=== PATIENT | male | born 1955 | race Caucasian/White ===

== ENCOUNTER 2024-06-09 19:12 | Inpatient (IN) | payer OTHER ==
[~2024-06-09] VITALS: Ht 175.3 cm; Wt 120.4 kg
[2024-06-09 19:37] LABS: BASOPHILS ABSOLUTE AUTO 0.03 K/mm3 (0.00-0.23); BASOPHILS PERCENT AUTO 1 % (0-2); EOSINOPHILS ABSOLUTE AUTO 0.11 K/mm3 (0.00-0.68); EOSINOPHILS PERCENT AUTO 2 % (0-6); Hematocrit 43.8 % (37.0-53.0); Hemoglobin 15.2 g/dL (13.5-17.5); IMMATURE GRAN ABSOLUTE AUTO 0.05 K/mm3 (0.00-0.10); IMMATURE GRAN PERCENT AUTO 1 % (0-1); LYMPHOCYTES PERCENT AUTO 22 % (21-46); MONOCYTES ABSOLUTE AUTO 0.78 K/mm3 (0.16-1.47); MONOCYTES PERCENT AUTO 12 % (4-13); Mean Corpuscular HGB 31.9 pg (26.0-34.0); Mean Corpuscular HGB Conc 34.7 g/dL (31.5-36.5); Mean Corpuscular Volume 92 fL (80-100); Mean Platelet Volume 10.6 fL (9.1-12.4); NEUTROPHILS ABSOLUTE AUTO 3.91 K/mm3 (1.96-9.15); NEUTROPHILS PERCENT AUTO 62 % (41-73); Platelet Count 180 K/mm3 (150-400); RDW Coefficient Variation 15.3 % (11.7-14.2); RDW Standard Deviation 50.1 fL (35.1-46.3); Red Blood Cell Count 4.77 M/mm3 (4.30-5.90); White Blood Cell Count 6.28 K/mm3 (4.00-11.30)
[2024-06-09 19:42] LABS: Base Excess Venous -3.2 mmol/L; Bicarbonate Venous 22.7 mmol/L (24.0-30.0); PCO2 Venous 31.1 mmHg (38-42); pH Blood Venous 7.44 (7.34-7.37)
[2024-06-09 19:55] LABS: Albumin, Blood 2.6 g/dL (3.4-5.0); Albumin/Globulin Ratio 0.7 (0.8-1.8); Bilirubin, Total 0.9 mg/dL (0.1-1.0); Bun/Creatinine Ratio 5.3 (12.0-20.0); Calcium, Blood 7.6 mg/dL (8.5-10.1); Creatinine, Blood 1.13 mg/dL (0.60-1.20); Globulin, Blood 3.9 g/dL (2.2-4.0); Total Protein, Blood 6.5 g/dL (6.4-8.2)
[2024-06-09 21:10] LABS: Influenza A, PCR NEGATIVE (NEGATIVE); Influenza B, PCR NEGATIVE (NEGATIVE); Resp Syncytial Virus, PCR NEGATIVE (NEGATIVE); SARS-Cov-2 (COVID-19) PCR, MMC NEGATIVE (NEGATIVE)
[2024-06-09 21:36] LABS: D-Dimer, Quantitative 3.92 mg/L FEU (0.00-0.52)
[2024-06-09] MEDS ORDERED: FLU VACC TS2024-25(6MOS UP)/PF 45 MCG/0.5 ML SYRINGE IM ONE (22:40)
[2024-06-09] MEDS ORDERED: Heparin Sodium 5000 Units/ML 1ML MDV IV ONE (23:45)
[2024-06-09] MEDS ORDERED: Heparin Sodium,Porcine/0.5 NS 500 ML IV SCH (23:45)
[2024-06-09 23:50] LABS: Anti-Xa UFH, PHA Monitoring <0.10 IU/mL; International Normalized Ratio 1.11; Prothrombin Time Results 11.8 Sec (9.7-11.5)
[2024-06-10 00:15] VITALS: BP 149/68
[2024-06-10] MEDS ORDERED: Ipratropium/Albuterol SulF 2.5-0.5MG/3 ML Amp INH PRN (00:30)
[2024-06-10] MEDS ORDERED: Lactated Ringer's 1,000 ML IV SCH (01:00)
[2024-06-10 03:44] VITALS: BP 137/79
[2024-06-10 05:13] LABS: BASOPHILS ABSOLUTE AUTO 0.03 K/mm3 (0.00-0.23); BASOPHILS PERCENT AUTO 1 % (0-2); EOSINOPHILS ABSOLUTE AUTO 0.18 K/mm3 (0.00-0.68); EOSINOPHILS PERCENT AUTO 3 % (0-6); Hematocrit 41.7 % (37.0-53.0); Hemoglobin 14.6 g/dL (13.5-17.5); IMMATURE GRAN ABSOLUTE AUTO 0.04 K/mm3 (0.00-0.10); IMMATURE GRAN PERCENT AUTO 1 % (0-1); LYMPHOCYTES ABSOLUTE AUTO 1.51 K/mm3 (0.84-5.20); LYMPHOCYTES PERCENT AUTO 24 % (21-46); MONOCYTES ABSOLUTE AUTO 0.59 K/mm3 (0.16-1.47); MONOCYTES PERCENT AUTO 9 % (4-13); Mean Corpuscular HGB 31.9 pg (26.0-34.0); Mean Corpuscular Volume 91 fL (80-100); Mean Platelet Volume 11.2 fL (9.1-12.4); NEUTROPHILS PERCENT AUTO 62 % (41-73); Platelet Count 169 K/mm3 (150-400); RDW Coefficient Variation 15.3 % (11.7-14.2); RDW Standard Deviation 50.2 fL (35.1-46.3); Red Blood Cell Count 4.57 M/mm3 (4.30-5.90); White Blood Cell Count 6.25 K/mm3 (4.00-11.30)
[2024-06-10 05:41] LABS: Alanine Aminotransfer (ALT/SGP 26 U/L (12-78); Albumin, Blood 2.6 g/dL (3.4-5.0); Albumin/Globulin Ratio 0.7 (0.8-1.8); Alk Phos 43 U/L (50-136); Anion Gap 11 mmol/L (3-11); Aspartate Aminotrans (AST/SGOT 26 U/L (12-37); Bilirubin, Total 1.4 mg/dL (0.1-1.0); Blood Urea Nitrogen 5 mg/dL (8-24); Bun/Creatinine Ratio 4.7 (12.0-20.0); CO2, Blood 23 mmol/L (21-32); Chloride, Blood 107 mmol/L (98-108); Cholesterol 133 mg/dL (50-200); Creatinine, Blood 1.07 mg/dL (0.60-1.20); Globulin, Blood 3.6 g/dL (2.2-4.0); Glomerular Filtration Rate 76 (60-); Glucose, Blood 110 mg/dL (70-99); HDL Cholesterol 22 mg/dL (>39); LDL/HDL RATIO 3.7; Low Density Lipoprotein Chol 81 mg/dL (0-110); Magnesium, Blood 1.8 mg/dL (1.6-2.4); Potassium, Blood 4.3 mmol/L (3.5-5.5); Sodium, Blood 137 mmol/L (136-145); Thyroid Stimulating Hormone 0.823 uIU/mL (0.360-4.800); Total Protein, Blood 6.2 g/dL (6.4-8.2); Triglycerides 150 mg/dL (30-160); Very Low Density Lipoprot Chol 30 mg/dL (6-32)
--- NOTE | 2024-06-10 06:39 | NUR ---
SHIFT SUMMARY PT ADMITTED 0011 WITH DYSPNEA RELATED TO EXERTION. PT HAS FRIEND IN ROOM. PLEASANT AND COOPERATIVE WITH CARE. PT EXPRESSED FEAR OF NEEDLES, AND WOULD LIKE TO REFRAIN FROM RECEIVING 2ND IV SITE 0500. THIS RN ABLE TO PUT IN SECOND IV 20G IN LEFT WRIST FOR FLUID AND MEDICATION ADMINISTRATION. PT HAD RUN OF PVC S AND SINUS TACH DURING INSERTION, DUE TO STRESS OF PUTTING IV IN.
[2024-06-10 07:33] VITALS: BP 144/133
[2024-06-10 07:40] VITALS: BP 135/86
[2024-06-10] MEDS ORDERED: Dose Adjust by Pharmacy XX STA ×2 (07:44→14:55)
[2024-06-10] MEDS ORDERED: Heparin Sodium 5000 Units/ML 1ML MDV IV ONE ×2 (07:45→21:20)
[2024-06-10] MEDS ORDERED: Enoxaparin 40 MG/0.4 ML SYR SC SCH (09:00)
--- NOTE | 2024-06-10 10:35 | NUR ---
CALL TO DR IRVING, ON-CALL IR: PT NOT REQUIRING OXYGEN AND NO ACTIVE SOB WITHOUT EXERTION. WILL PLAN TO SEE WEDNESDAY UNLESS IMMEDIATE NEED ARISES.
[2024-06-10 15:39] VITALS: BP 146/81
--- NOTE | 2024-06-10 17:13 | NUR ---
PT HAS BEE AOX4 AND COOPERATIVE OF CARE. PT HAD MRI COMPLETED AND WOUND CARE WAS PREFORMED ON BOTH STUMPS PER ORDER. PT TOLERATED WELL AND HELPED WITH SOME OF THE CARE. PT HAS CALL LIGHT WITHIN REACH. NO DISTRESS IS NOTED WILL CONTINUE TO MONITOR.
--- NOTE | 2024-06-10 17:16 | NUR ---
PT HAS BEEN AOX4 AND COOPERATIVE OF CARE THROUGHOUT THE DAY. PT STILL FEELS SOB WITH AMBULATION. PT WAS ABLE TO BE INDEPENDENT TO RESTROOM. AT TIMES HE WILL REQUEST HELP WITH IV LINES. PT WAS DESATING A BIT SLEEPING AND RT ADDED 2L WHILE PT SLEEPS. CALL LIGHT IS WITHIN REACH WILL CONTINUE TO MONITOR.
[2024-06-10 19:29] VITALS: BP 127/85
[2024-06-11 02:41] VITALS: BP 147/82
[2024-06-11 04:10] LABS: Hematocrit 43.9 % (37.0-53.0); Hemoglobin 15.2 g/dL (13.5-17.5); Mean Platelet Volume 11.3 fL (9.1-12.4); Platelet Count 184 K/mm3 (150-400)
[2024-06-11] MEDS ORDERED: Dose Adjust by Pharmacy XX STA (04:33)
--- NOTE | 2024-06-11 06:02 | NUR ---
SHIFT SUMMARY: Pt is admitted for dyspnea on exertion and is a full code. Is alert and able to make needs known. ADLs have been SBA mainly for cable management. Denies pain or discomfort when asked. Telly reports sinus in the 80s. On a heparin drip started shift at 36.4 ml/h. Was increased to 40 ml/h and a 2,300u bouls about 2130. On check at about 0300 no changes to heparin drip.
[2024-06-11 07:36] VITALS: BP 139/83
[2024-06-11] MEDS ORDERED: Furosemide 20 MG Tab PO PRN (07:55)
[2024-06-11 08:38] LABS: BASOPHILS ABSOLUTE AUTO 0.03 K/mm3 (0.00-0.23); BASOPHILS PERCENT AUTO 1 % (0-2); EOSINOPHILS ABSOLUTE AUTO 0.17 K/mm3 (0.00-0.68); EOSINOPHILS PERCENT AUTO 3 % (0-6); Hematocrit 42.9 % (37.0-53.0); Hemoglobin 14.7 g/dL (13.5-17.5); IMMATURE GRAN ABSOLUTE AUTO 0.02 K/mm3 (0.00-0.10); IMMATURE GRAN PERCENT AUTO 0 % (0-1); LYMPHOCYTES ABSOLUTE AUTO 1.28 K/mm3 (0.84-5.20); LYMPHOCYTES PERCENT AUTO 25 % (21-46); MONOCYTES ABSOLUTE AUTO 0.52 K/mm3 (0.16-1.47); MONOCYTES PERCENT AUTO 10 % (4-13); Mean Corpuscular HGB Conc 34.3 g/dL (31.5-36.5); Mean Corpuscular Volume 93 fL (80-100); Mean Platelet Volume 10.9 fL (9.1-12.4); NEUTROPHILS ABSOLUTE AUTO 3.09 K/mm3 (1.96-9.15); NEUTROPHILS PERCENT AUTO 61 % (41-73); Platelet Count 192 K/mm3 (150-400); RDW Coefficient Variation 15.4 % (11.7-14.2); RDW Standard Deviation 51.8 fL (35.1-46.3); White Blood Cell Count 5.11 K/mm3 (4.00-11.30)
[2024-06-11 08:56] LABS: Bun/Creatinine Ratio 7.1 (12.0-20.0); Calcium, Blood 8.5 mg/dL (8.5-10.1); Creatinine, Blood 1.12 mg/dL (0.60-1.20); Potassium, Blood 4.1 mmol/L (3.5-5.5)
[2024-06-11] MEDS ORDERED: Metoprolol Succinate 25 MG TABCR PO SCH (09:00)
[2024-06-11] MEDS ORDERED: Losartan Potassium 25 MG Tab PO SCH (09:00)
[2024-06-11] MEDS ORDERED: Rivaroxaban 10 MG Tab PO SCH (09:40)
--- NOTE | 2024-06-11 09:57 | NUR ---
NOTE: PATIENT STARTED ON PO XARELTO-ADMINISTERED AT 0943 AND HEPARIN GTT STOPPED PER ORDER.
[2024-06-11] MEDS ORDERED: Empagliflozin 10 MG TAB PO SCH (13:00)
[2024-06-11 15:35] VITALS: BP 132/88
--- NOTE | 2024-06-11 16:35 | NUR ---
SHIFT SUMMARY: PATIENT A/OX4, PLEASANT AND COOPERATIVE c CARE. PATIENT DENIES CP/PRESSURE, N/V AND DIZZINESS. PATIENT HAS HAD NO EVENTS ON TELE, SR HR IN THE MID 90'S BP c OCCASIONAL BBB. PATIENT REPORTS SLIGHT SOB c AMBULATION TO BATHROOM, BUT WHEN RESTING IN BED NO SOB. PATIENT HAS CONTINUES PULSE OX AT BEDSIDE, RA WHEN AWAKE SATTING 91-96%. THIS RN NOTICED DURING ROUNDING PATIENT WAS IN THE DEEP SLEEP/SNOORING HIS O2 DROOPED TO 82%. NOTIFIED DR. CARA cornejo THIS CONCERNED, RECEIVED ORDER TO PLACED A NOCTURNAL OXYMETRY STUDY. PATIENT RECEIVED SCHEDULED MEDS PER EMAR. VITAL SIGNS REVIEWED. CALL LIGHT IN REACH.
--- NOTE | 2024-06-11 16:35 | NUR ---
ADDITIONAL SHIFT NOTE: PATIENT WAS PLACED ON 2L O2 WHEN SLEEPING; OTHERWISE, RA WHEN AWAKE.
[2024-06-11 20:06] VITALS: BP 129/87
[2024-06-12 04:04] VITALS: BP 145/94
--- NOTE | 2024-06-12 06:01 | NUR ---
SHIFT SUMMARY: Pt is admitted for dyspnea on exertion and is a full code. Is alert and able to make needs known. ADLs have been SBA mainly for cable management. Denies pain or discomfort when asked. Telly reports sinus in the 70s with a bundle branch. Had sleep study done this shift.
[2024-06-12 07:16] VITALS: BP 130/73
[2024-06-12 07:56] LABS: BASOPHILS ABSOLUTE AUTO 0.01 K/mm3 (0.00-0.23); BASOPHILS PERCENT AUTO 0 % (0-2); EOSINOPHILS ABSOLUTE AUTO 0.12 K/mm3 (0.00-0.68); EOSINOPHILS PERCENT AUTO 3 % (0-6); Hematocrit 43.9 % (37.0-53.0); Hemoglobin 15.2 g/dL (13.5-17.5); IMMATURE GRAN ABSOLUTE AUTO 0.02 K/mm3 (0.00-0.10); IMMATURE GRAN PERCENT AUTO 0 % (0-1); LYMPHOCYTES ABSOLUTE AUTO 0.91 K/mm3 (0.84-5.20); LYMPHOCYTES PERCENT AUTO 19 % (21-46); MONOCYTES ABSOLUTE AUTO 0.57 K/mm3 (0.16-1.47); MONOCYTES PERCENT AUTO 12 % (4-13); Mean Corpuscular HGB Conc 34.6 g/dL (31.5-36.5); Mean Corpuscular Volume 92 fL (80-100); Mean Platelet Volume 10.9 fL (9.1-12.4); NEUTROPHILS PERCENT AUTO 66 % (41-73); Platelet Count 205 K/mm3 (150-400); RDW Coefficient Variation 15.2 % (11.7-14.2); RDW Standard Deviation 50.5 fL (35.1-46.3); Red Blood Cell Count 4.75 M/mm3 (4.30-5.90); White Blood Cell Count 4.83 K/mm3 (4.00-11.30)
[2024-06-12 08:18] LABS: Albumin, Blood 2.6 g/dL (3.4-5.0); Albumin/Globulin Ratio 0.7 (0.8-1.8); Bilirubin, Total 0.9 mg/dL (0.1-1.0); Bun/Creatinine Ratio 7.1 (12.0-20.0); Calcium, Blood 8.7 mg/dL (8.5-10.1); Creatinine, Blood 1.26 mg/dL (0.60-1.20); Globulin, Blood 3.8 g/dL (2.2-4.0); Potassium, Blood 4.2 mmol/L (3.5-5.5); Total Protein, Blood 6.4 g/dL (6.4-8.2)
[2024-06-12] MEDS ORDERED: Metoprolol Succinate 25 MG TABCR PO SCH (09:00)
[2024-06-12] MEDS ORDERED: Albuterol HFA200 ACT/6.7 GM INH INH PRN (10:10)
[2024-06-12] MEDS ORDERED: JARDIANCE10 MG PO (11:54)
[2024-06-12] MEDS ORDERED: LOSA25 PO (11:55)
[2024-06-12] MEDS ORDERED: METO25ER PO (11:55)
[2024-06-12] MEDS ORDERED: FURO20 PO (11:55)
[2024-06-12] MEDS ORDERED: XARELTO20 MG PO (11:56)
[2024-06-12] MEDS ORDERED: XARELTO15 MG PO (11:56)
[2024-06-12] MEDS ORDERED: COMBIVENT RESPIM4 G1 INH (11:57)
--- NOTE | 2024-06-12 15:20 | NUR ---
PT DISCHARGED TO HOME. DISCHARGE EDUCATION PROVIDED AND EDUCATED ON PRIOR TO DISCHARGE. HARD SCRIPTS MEDICATION PROVIDED AND S[facility] WITH THE PT [facility]. ALL VALUABLES SENT WITH THE PT.
== END 2024-06-12 15:51 | disposition home or self-care (01) | DRG 299 ==
LOC: ER 19:12 → MEDS 19:13
PROVIDERS: Emergency Medicine; Internal Medicine; Student in an Organized Health Care Education/Training Program; ADMIT Student in an Organized Health Care Education/Training Program
DX: I82.412 Acute embolism and thrombosis of left femoral vein (principal); I26.94 Multiple subsegmental thrombotic pulmonary emboli without acute cor pulmonale; I50.40 Unspecified combined systolic (congestive) and diastolic (congestive) heart failure; I82.432 Acute embolism and thrombosis of left popliteal vein; I82.452 Acute embolism and thrombosis of left peroneal vein; M06.9 Rheumatoid arthritis, unspecified; I44.7 Left bundle-branch block, unspecified; Z99.81 Dependence on supplemental oxygen; Z87.891 Personal history of nicotine dependence
CPT/HCPCS: 0241U; 36415; 71046; 71260; 80048; 80053; 80061; 82330; 82803; 82947; 83036; 83735; 83880; 84443; 84484; 85014; 85018; 85025; 85049; 85379; 85520; 85610; 93005; 93010; 93306; 93970; 94760; 94761; 94762; 99285-25; A9270; G0378; J1644; J7120; Q9967

== ENCOUNTER 2024-06-26 01:36 | Observation (INO) | payer OTHER ==
[~2024-06-26] VITALS: Ht 175.3 cm; Wt 115.5 kg
[~2024-06-26 01:36] MED LIST: COMBIVENT RESPIM4 G1 INH; FURO20 PO; JARDIANCE10 MG PO; LOSA25 PO; METO25ER PO; XARELTO15 MG PO; XARELTO20 MG PO
[2024-06-26 02:09] LABS: BASOPHILS ABSOLUTE AUTO 0.08 K/mm3 (0.00-0.23); BASOPHILS PERCENT AUTO 1 % (0-2); EOSINOPHILS ABSOLUTE AUTO 0.12 K/mm3 (0.00-0.68); EOSINOPHILS PERCENT AUTO 2 % (0-6); Hematocrit 43.7 % (37.0-53.0); Hemoglobin 14.9 g/dL (13.5-17.5); IMMATURE GRAN ABSOLUTE AUTO 0.03 K/mm3 (0.00-0.10); IMMATURE GRAN PERCENT AUTO 1 % (0-1); LYMPHOCYTES ABSOLUTE AUTO 1.94 K/mm3 (0.84-5.20); LYMPHOCYTES PERCENT AUTO 32 % (21-46); MONOCYTES ABSOLUTE AUTO 0.67 K/mm3 (0.16-1.47); MONOCYTES PERCENT AUTO 11 % (4-13); Mean Corpuscular HGB 32.3 pg (26.0-34.0); Mean Corpuscular HGB Conc 34.1 g/dL (31.5-36.5); Mean Corpuscular Volume 95 fL (80-100); Mean Platelet Volume 11.1 fL (9.1-12.4); NEUTROPHILS ABSOLUTE AUTO 3.27 K/mm3 (1.96-9.15); NEUTROPHILS PERCENT AUTO 53 % (41-73); Platelet Count 249 K/mm3 (150-400); RDW Coefficient Variation 14.9 % (11.7-14.2); RDW Standard Deviation 51.8 fL (35.1-46.3); Red Blood Cell Count 4.61 M/mm3 (4.30-5.90); White Blood Cell Count 6.11 K/mm3 (4.00-11.30)
[2024-06-26 02:30] LABS: Albumin, Blood 2.9 g/dL (3.4-5.0); Albumin/Globulin Ratio 0.7 (0.8-1.8); Bilirubin, Total 0.3 mg/dL (0.1-1.0); Calcium, Blood 8.3 mg/dL (8.5-10.1); Creatinine, Blood 1.13 mg/dL (0.60-1.20); Globulin, Blood 3.9 g/dL (2.2-4.0); Potassium, Blood 4.2 mmol/L (3.5-5.5); Total Protein, Blood 6.8 g/dL (6.4-8.2)
[2024-06-26 03:40] LABS: Influenza A, PCR NEGATIVE (NEGATIVE); Influenza B, PCR NEGATIVE (NEGATIVE); Resp Syncytial Virus, PCR NEGATIVE (NEGATIVE); SARS-Cov-2 (COVID-19) PCR, MMC NEGATIVE (NEGATIVE)
[2024-06-26] MEDS ORDERED: FLU VACC TS2024-25(6MOS UP)/PF 45 MCG/0.5 ML SYRINGE IM ONE (06:05)
[2024-06-26] MEDS ORDERED: Ondansetron HCl 2 MG / ML 2ML Vial IV PRN (06:05)
[2024-06-26] MEDS ORDERED: Ipratropium/Albuterol SulF 2.5-0.5MG/3 ML Amp INH PRN (06:10)
[2024-06-26] MEDS ORDERED: Furosemide 10 MG/ML 4ML Vial IV SCH (07:00)
[2024-06-26] MEDS ORDERED: MethylPREDNISolone Sod Succ 125 MG Vial IV SCH (07:00)
[2024-06-26] MEDS ORDERED: Rivaroxaban 10 MG Tab PO SCH (09:00)
[2024-06-26] MEDS ORDERED: Metoprolol Succinate 25 MG TABCR PO SCH (09:00)
[2024-06-26] MEDS ORDERED: Losartan Potassium 50 MG Tab PO SCH (09:00)
[2024-06-26] MEDS ORDERED: Empagliflozin 10 MG TAB PO SCH (10:00)
[2024-06-26] MEDS ORDERED: Prednisone10 MG PO (15:35)
[2024-06-26 15:36] VITALS: BP 139/99
[2024-06-26 19:17] VITALS: BP 125/78
--- NOTE | 2024-06-26 19:28 | NUR ---
SHIFT SUMMARY 1630 RECEIVED PT TO RM 302 VIA GURNEY FROM ER. PT ABLE TO TX SELF TO BED. A&O, PLEASANT AND CO-OP WITH CARE. INDEPENDENT IN AND TO [facility]. ADMITTED FOR ACUTE CHF. PT TO ER WITH C/O SOB THAT HAD INCREASED FOR PAST FEW DAYS. HX OF PE'S AND DVT; NOW ON XARELTO. PER REPORT FROM EVELIN PAYNE, EMBOLI STABLE. BP AND VSS; SEE CHART. DR WELLS HERE TO SEE PT SOON AFTER ADMISSION. TROPONINS BEING CHK'D; SEE CHART. SR ON TELE, PER MX. PT PLACED ON CARDIAC DIET. UP TO SHOWER AFTER ADMISSION AND NOW SLEEPING IN RECLINER AT BS, PER REQUEST. DENIES FURTHER NEEDS AT THIS TIME. REPORT GIVEN TO ALIYA PAYNE.
--- NOTE | 2024-06-27 04:00 | NUR ---
EMPLOYMENT ATTORNEY SUMMARY NO ACUTE EVENTS OVERNIGHT. NO CHANGES. PT STILL FEELS A LITTLE SOB ON TRIPS TO THE BATHROOM. STICT I AND O DONE. PT DOING WELL ON ROOM AIR.
[2024-06-27 04:11] VITALS: BP 118/73
[2024-06-27 05:16] LABS: BASOPHILS ABSOLUTE AUTO 0.03 K/mm3 (0.00-0.23); BASOPHILS PERCENT AUTO 0 % (0-2); EOSINOPHILS ABSOLUTE AUTO 0.02 K/mm3 (0.00-0.68); EOSINOPHILS PERCENT AUTO 0 % (0-6); Hemoglobin 14.8 g/dL (13.5-17.5); IMMATURE GRAN ABSOLUTE AUTO 0.05 K/mm3 (0.00-0.10); IMMATURE GRAN PERCENT AUTO 1 % (0-1); LYMPHOCYTES ABSOLUTE AUTO 1.72 K/mm3 (0.84-5.20); LYMPHOCYTES PERCENT AUTO 19 % (21-46); MONOCYTES ABSOLUTE AUTO 0.95 K/mm3 (0.16-1.47); MONOCYTES PERCENT AUTO 10 % (4-13); Mean Corpuscular HGB 31.7 pg (26.0-34.0); Mean Corpuscular HGB Conc 33.6 g/dL (31.5-36.5); Mean Corpuscular Volume 94 fL (80-100); Mean Platelet Volume 12.1 fL (9.1-12.4); NEUTROPHILS ABSOLUTE AUTO 6.52 K/mm3 (1.96-9.15); NEUTROPHILS PERCENT AUTO 70 % (41-73); Platelet Count 251 K/mm3 (150-400); RDW Coefficient Variation 14.9 % (11.7-14.2); RDW Standard Deviation 51.6 fL (35.1-46.3); Red Blood Cell Count 4.67 M/mm3 (4.30-5.90); White Blood Cell Count 9.29 K/mm3 (4.00-11.30)
[2024-06-27 05:59] LABS: Albumin, Blood 2.7 g/dL (3.4-5.0); Albumin/Globulin Ratio 0.7 (0.8-1.8); Bilirubin, Total 0.6 mg/dL (0.1-1.0); Bun/Creatinine Ratio 21.9 (12.0-20.0); Calcium, Blood 8.7 mg/dL (8.5-10.1); Creatinine, Blood 1.14 mg/dL (0.60-1.20); Globulin, Blood 3.8 g/dL (2.2-4.0); Potassium, Blood 4.2 mmol/L (3.5-5.5); Total Protein, Blood 6.5 g/dL (6.4-8.2)
[2024-06-27 07:27] VITALS: BP 126/77
[2024-06-27] MEDS ORDERED: PredniSONE 20 MG Tab PO SCH (09:00)
--- NOTE | 2024-06-27 13:04 | NUR ---
DISCHARGE NOTE: PATIENT GIVEN DISCHARGE INSTRUCTIONS TO PATIENT AND SIGNIFICANT OTHER PER PATIENT REQUEST. PATIENT'S MEDICAITON WERE REVIEWED AND ADVISED OF IMPORTANCE OF DISHCARGE FOLLOW UP WITH PRIMARY CARE PROVIDER AT [facility]. PATIENT STATED HE WAS PLANNING TO GO THERE DIRECTLY AFTER DISHCARGE TO BOOK APPT AND GET MEDICATION ORDERED. PATIENT VERBALIZED UNDERSTANDING AND DENIED ANY OTHER QUESTIONS. PATIENT TAKEN DOWN VIA WHEELCHAIR WITH SIGNFICANT OTHER TO TAKE PATIENT HOME.
[2024-07-03] MEDS ORDERED: Rivaroxaban 10 MG Tab PO SCH (09:00)
== END 2024-06-27 12:50 | disposition home or self-care (01) ==
LOC: ER 01:36 → ERHOLD 01:37 → MEDS 15:23 → ENPENDDIS 06-27 11:14 → MEDS 06-27 12:50
PROVIDERS: Student in an Organized Health Care Education/Training Program; ADMIT Internal Medicine
DX: I11.0 Hypertensive heart disease with heart failure (principal); I50.33 Acute on chronic diastolic (congestive) heart failure; R06.2 Wheezing; R79.89 Other specified abnormal findings of blood chemistry; M06.9 Rheumatoid arthritis, unspecified; Z79.01 Long term (current) use of anticoagulants; Z86.711 Personal history of pulmonary embolism; Z79.899 Other long term (current) drug therapy; Z86.718 Personal history of other venous thrombosis and embolism
CPT/HCPCS: 0241U; 36415; 71046; 71260; 80053; 83880; 84484; 85025; 85379; 93005; 93010; 96374-59; 96375-59; 96376; 99285-25; A9270; G0378; J1940; J2919; J7512; Q9967

== ENCOUNTER 2024-07-17 06:28 | Day surgery (SDC) | payer OTHER ==
[~2024-07-17] VITALS: Ht 175.3 cm; Wt 118.0 kg
[2024-07-17] VITALS (8 sets, daily range): BP systolic 120–151; BP diastolic 77–101
[~2024-07-17 06:28] MED LIST changes: +Prednisone10 MG PO
[2024-07-17] MEDS ORDERED: NS 1,000 ML IV ONE ×2 (06:38→07:26)
[2024-07-17] MEDS ORDERED: Heparin Sodium 1000 Units/ML 10ML MDV ONE ×2 (06:38→07:26)
[2024-07-17] MEDS ORDERED: FentaNYL Citrate 50 MCG/ML 2 ML Injection ONE ×2 (07:17→09:02)
[2024-07-17] MEDS ORDERED: Dexamethasone Sod Phos 10 MG/ML 1ML VIAL ONE (07:17)
[2024-07-17] MEDS ORDERED: propofoL 20 ML IV ONE (07:17)
[2024-07-17] MEDS ORDERED: Ondansetron HCl 2 MG / ML 2ML Vial ONE (07:17)
[2024-07-17] MEDS ORDERED: Albuterol 2.5 MG/3 ML VIAL ONE (07:26)
[2024-07-17] MEDS ORDERED: SuccINYLCHOLINE Chloride 100 MG/5 ML 5MLSYR ONE (07:42)
--- NOTE | 2024-07-17 09:28 | NUR ---
PT BACK TO RECOVERY ROOM, WAKING UP FROM ANESTHESIA.
--- NOTE | 2024-07-17 09:46 | NUR ---
pt a&o. l leg site soft and mildly tender per pt. no bleeding noted.
--- NOTE | 2024-07-17 09:47 | NUR ---
anesthesia record in chart
--- NOTE | 2024-07-17 10:11 | NUR ---
PT SITTING UP IN BED USING PHONE. ACCESS SITE SOFT AND MILDLY TENDER PER PT. NO BLEEDING NOTED.
--- NOTE | 2024-07-17 10:59 | NUR ---
family at [facility].
--- NOTE | 2024-07-17 11:03 | NUR ---
PT SITTING UP EATING AND DRINKING COFFEE. PT'S SPOUSE AT BEDSIDE.
--- NOTE | 2024-07-17 11:17 | NUR ---
access site soft and mildly tender per pt. no bleeding noted. da adilene at bedside to discuss procedure and future plan of care.
--- NOTE | 2024-07-17 11:20 | NUR ---
IN TO UPDATE PT AND FAMILY. IV D/C CATHETER REMOVED. PT UP AND DRESSED. L POP SITE IS SOFT NON TENDER, NO HEMATOMA OR BLEEDING. PT WHEELED OUT TO VEHICLE.
[2024-07-17] MEDS ORDERED: Glycopyrrolate 0.2 MG/ML 5ML VIAL IV ONE (15:15)
[2024-07-17] MEDS ORDERED: Lidocaine HCl 1% 5 ML SYR INFIL ONE (15:15)
== END 2024-07-17 11:30 | disposition home or self-care (01) ==
LOC: MHTC 06:28
DX: I82.412 Acute embolism and thrombosis of left femoral vein (principal); Z87.891 Personal history of nicotine dependence; Z79.01 Long term (current) use of anticoagulants; Z79.899 Other long term (current) drug therapy
CPT/HCPCS: 37248; 75820; 76937; C1725; C1769; C1887; C1894; J0330; J1100; J1644; J2405; J2704; J3010; J7030; Q9967

== ENCOUNTER 2024-08-07 20:17 | Inpatient (IN) | payer OTHER ==
[~2024-08-07] VITALS: Ht 175.3 cm; Wt 112.2 kg
[2024-08-07 20:51] LABS: CORONAVIRUS COVID-19 AG Negative (NEGATIVE); INFLUENZA A AG Positive (NEGATIVE); INFLUENZA B AG Negative (NEGATIVE)
[2024-08-07 20:53] LABS: BASOPHILS ABSOLUTE AUTO 0.04 K/mm3 (0.00-0.23); BASOPHILS PERCENT AUTO 0 % (0-2); EOSINOPHILS ABSOLUTE AUTO 0.01 K/mm3 (0.00-0.68); EOSINOPHILS PERCENT AUTO 0 % (0-6); Hematocrit 50.6 % (37.0-53.0); Hemoglobin 17.3 g/dL (13.5-17.5); IMMATURE GRAN ABSOLUTE AUTO 0.05 K/mm3 (0.00-0.10); IMMATURE GRAN PERCENT AUTO 1 % (0-1); LYMPHOCYTES ABSOLUTE AUTO 1.39 K/mm3 (0.84-5.20); LYMPHOCYTES PERCENT AUTO 15 % (21-46); MONOCYTES ABSOLUTE AUTO 1.34 K/mm3 (0.16-1.47); MONOCYTES PERCENT AUTO 14 % (4-13); Mean Corpuscular HGB 32.1 pg (26.0-34.0); Mean Corpuscular HGB Conc 34.2 g/dL (31.5-36.5); Mean Corpuscular Volume 94 fL (80-100); Mean Platelet Volume 11.4 fL (9.1-12.4); NEUTROPHILS ABSOLUTE AUTO 6.55 K/mm3 (1.96-9.15); NEUTROPHILS PERCENT AUTO 70 % (41-73); NRBC ABSOLUTE 0.03 K/mm3 (0.00-0.02); NRBC Auto 0.3 /100 WBC (0.0-0.2); Platelet Count 163 K/mm3 (150-400); RDW Coefficient Variation 14.4 % (11.7-14.2); RDW Standard Deviation 49.5 fL (35.1-46.3); Red Blood Cell Count 5.39 M/mm3 (4.30-5.90); White Blood Cell Count 9.38 K/mm3 (4.00-11.30)
[2024-08-07 21:12] LABS: Albumin, Blood 3.4 g/dL (3.4-5.0); Albumin/Globulin Ratio 0.7 (0.8-1.8); Bilirubin, Total 0.9 mg/dL (0.1-1.0); Bun/Creatinine Ratio 11.3 (12.0-20.0); Calcium, Blood 8.7 mg/dL (8.5-10.1); Creatinine, Blood 1.95 mg/dL (0.60-1.20); Globulin, Blood 5.1 g/dL (2.2-4.0); Potassium, Blood 4.2 mmol/L (3.5-5.5); Total Protein, Blood 8.5 g/dL (6.4-8.2)
[2024-08-07] MEDS ORDERED: Albuterol 2.5 MG/3 ML VIAL INH PRN (23:10)
[2024-08-07] MEDS ORDERED: FLU VACC TS2024-25(6MOS UP)/PF 45 MCG/0.5 ML SYRINGE IM ONE (23:10)
[2024-08-07] MEDS ORDERED: Ondansetron HCl 2 MG / ML 2ML Vial IV PRN (23:15)
[2024-08-07] MEDS ORDERED: Oseltamivir Phosphate 75 MG Cap PO ONE (23:24)
[2024-08-07 23:54] LABS: Base Excess Venous -4.9 mmol/L; Bicarbonate Venous 19.4 mmol/L (24.0-30.0); PCO2 Venous 47.4 mmHg (38-42); pH Blood Venous 7.27 (7.34-7.37)
[2024-08-08] VITALS (12 sets, daily range): BP systolic 64–120; BP diastolic 45–85
[2024-08-08] MEDS ORDERED: Ipratropium/Albuterol SulF 2.5-0.5MG/3 ML Amp INH SCH (00:10)
[2024-08-08] MEDS ORDERED: Sodium Bicarb 8.4% Inj 100 MEQ in Sodium Chloride 0.45% 1,000 ML IV SCH ×2 (00:15→00:20)
[2024-08-08 04:17] LABS: Base Excess Venous -3.8 mmol/L; Bicarbonate Venous 19.7 mmol/L (24.0-30.0); PCO2 Venous 50.3 mmHg (38-42); pH Blood Venous 7.27 (7.34-7.37)
[2024-08-08 05:06] LABS: BASOPHILS ABSOLUTE AUTO 0.03 K/mm3 (0.00-0.23); BASOPHILS PERCENT AUTO 0 % (0-2); EOSINOPHILS PERCENT AUTO 0 % (0-6); Hematocrit 46.8 % (37.0-53.0); Hemoglobin 16.2 g/dL (13.5-17.5); IMMATURE GRAN ABSOLUTE AUTO 0.05 K/mm3 (0.00-0.10); IMMATURE GRAN PERCENT AUTO 1 % (0-1); LYMPHOCYTES ABSOLUTE AUTO 1.69 K/mm3 (0.84-5.20); LYMPHOCYTES PERCENT AUTO 17 % (21-46); MONOCYTES ABSOLUTE AUTO 1.34 K/mm3 (0.16-1.47); MONOCYTES PERCENT AUTO 14 % (4-13); Mean Corpuscular HGB 32.3 pg (26.0-34.0); Mean Corpuscular HGB Conc 34.6 g/dL (31.5-36.5); Mean Corpuscular Volume 93 fL (80-100); Mean Platelet Volume 11.5 fL (9.1-12.4); NEUTROPHILS ABSOLUTE AUTO 6.65 K/mm3 (1.96-9.15); NEUTROPHILS PERCENT AUTO 68 % (41-73); Platelet Count 133 K/mm3 (150-400); RDW Coefficient Variation 14.5 % (11.7-14.2); RDW Standard Deviation 49.2 fL (35.1-46.3); Red Blood Cell Count 5.02 M/mm3 (4.30-5.90); White Blood Cell Count 9.76 K/mm3 (4.00-11.30)
[2024-08-08 06:14] LABS: Albumin/Globulin Ratio 0.7 (0.8-1.8); Bilirubin, Total 0.8 mg/dL (0.1-1.0); Bun/Creatinine Ratio 9.3 (12.0-20.0); Calcium, Blood 8.6 mg/dL (8.5-10.1); Creatinine, Blood 3.11 mg/dL (0.60-1.20); Globulin, Blood 4.4 g/dL (2.2-4.0); Magnesium, Blood 2.1 mg/dL (1.6-2.4); Potassium, Blood 4.4 mmol/L (3.5-5.5); Total Protein, Blood 7.4 g/dL (6.4-8.2)
[2024-08-08] MEDS ORDERED: Empagliflozin 10 MG TAB PO SCH (09:00)
[2024-08-08] MEDS ORDERED: Oseltamvir Phosphate 30 MG Cap PO SCH (09:00)
[2024-08-08] MEDS ORDERED: Rivaroxaban 10 MG Tab PO SCH (09:00)
[2024-08-08] MEDS ORDERED: Metoprolol Succinate 25 MG TABCR PO SCH (09:00)
[2024-08-08] MEDS ORDERED: Benzonatate 100 MG Cap PO ONE (11:40)
[2024-08-08] MEDS ORDERED: Acetaminophen 325 MG TABLET PO PRN (11:40)
[2024-08-08 12:56] LABS: Percent Saturation 7.2 % (20.0-50.0)
[2024-08-08 13:13] LABS: PCO2 Venous 33.2 mmHg (38-42); pH Blood Venous 7.32 (7.34-7.37)
[2024-08-08 13:14] LABS: Base Excess Venous -9.2 mmol/L; Bicarbonate Venous 18.1 mmol/L (24.0-30.0)
[2024-08-08] MEDS ORDERED: NS 1,000 ML IV SCH (13:45)
[2024-08-08] MEDS ORDERED: Iron Dextran 50 MG / ML 2ML Vial IV ONE (13:50)
[2024-08-08] MEDS ORDERED: CefTRIAXone Sodium 2,000 MG in NS 100 ML IV SCH (15:25)
[2024-08-08] MEDS ORDERED: NS 1,000 ML IV ONE (15:25)
[2024-08-08] MEDS ORDERED: Nystatin 100,000 Unit/GM CREAM 15 GM TOP SCH (15:40)
[2024-08-08] MEDS ORDERED: MethylPREDNISolone Sod Succ 125 MG Vial IV SCH (16:00)
[2024-08-08] MEDS ORDERED: Iron Dextran 975 MG in NS 250 ML IV ONE (16:00)
--- NOTE | 2024-08-08 17:05 | NUR ---
ADMISSION/SHIFT SUMMARY: PT IS A NEW ADMIT, ARRIVING FROM ER APPROX 1450. PT ARRIVES A&Ox4, RESPIRATIONS ARE LABORED, SOFT BLOOD PRESSURES. PROVIDER NOTIFIED AND TO BEDSIDE. NEW ORDERS PLACED, LABS DRAWN FOR ADDITIONAL TESTS. PT ANSWERS QUESTIONS WITH SHORT SENTENCES D/TO TACHYPNEA AND SOB, PT DRIFTS OFF TO SLEEP QUICKLY WHEN NOT BEING TALKED TO, IS EASY TO WAKE. PT PLACED ON AIRVO, CURRENT SETTING 50L AND 60%, O2 SATS 97%. 1 L NS GIVEN A BOLUS, BLOOD PRESSURES IMPROVE. SIN RHYTHM W/BBB AND PVCs ON MONITOR, RATE 80s, PT REPORTS CP WHEN COUGHING OTHERWISE DENIES. LABS HAVE BEEN DRAWN FOR LACTIC AND BLOOD CX, RESULTS PENDING. PT STATES HE HAS A HOME TO LIVE IN, IT IS ONE STORY, HE LIVES W/HIS S.O., BUT PT APPEARS TO HAVE DIRT/GRIME IN THE CREASES OF HIS NECK/ON HIS HANDS/UNDER HIS NAILS. PT REPORTS DIARRHEA FOR THE PAST 1-2 WEEKS. ONE EPISODE OF BROWN LIQUID STOOL SINCE ARRIVAL TO UNIT. OF NOW, PT IS CONTINENT OF STOOL/URINE AND HE PREFERS TO WALK TO THE BATHROOM, BUT WAS AGREEABLE TO BSC AFTER EDUCATION PROVIDED. PER REPORT F/ER STAFF PT W/HIGH TEMPERATURE AND MEDICATED W/TYLENOL, PT IS CURRENTLY AFEBRILE. PT RESTING QUIETLY WITH EYES CLOSED, RESPIRATIONS ARE EVEN AND MILDLY LABORED. WILL CONTINUE TO MONITOR AND TREAT ACCORDINGLY UNTIL CHANGE OF SHIFT.
[2024-08-08] MEDS ORDERED: Dose Adjust by Pharmacy XX STA (17:27)
[2024-08-08] MEDS ORDERED: Heparin Sodium,Porcine/0.5 NS 500 ML IV SCH (17:30)
[2024-08-08] MEDS ORDERED: Heparin Sodium 5000 Units/ML 1ML MDV IV ONE (17:30)
[2024-08-08 17:38] LABS: Anti-Xa UFH, PHA Monitoring <0.10 IU/mL; International Normalized Ratio 1.09; Prothrombin Time Results 11.6 Sec (9.7-11.5)
[2024-08-08] MEDS ORDERED: Furosemide 10 MG / ML 2ML Vial IV SCH (18:00)
[2024-08-08] MEDS ORDERED: Losartan Potassium 50 MG Tab PO SCH (21:00)
[2024-08-08] MEDS ORDERED: Apixaban 5 MG Tab PO SCH (21:00)
[2024-08-09] VITALS (11 sets, daily range): BP systolic 108–130; BP diastolic 66–87
--- NOTE | 2024-08-09 01:46 | NUR ---
THIS RN ASSUMED CARE OF PT AT 1900. PT IS ALERT AND ORIENTED X4, FOLLOWS COMMANDS, PT IS VERY DROWSY, PT STATES THEY ARE EXTREMELY TIRED. PT HEART RATE IN THE 70s, BLOOD PRESSURE STABLE AT 114/55, PT DENIES ANY CHEST PAIN. PT SOUNDS WHEEZY/DIMINISHED, ON AIRVO 50L 60%, PT SATTING >95% AND PT DENIES ANY SHORTNESS OF BREATHE. PT HAS SOME EXCORIATION ON RIGHT GROIN SITE, BEING TREATED PER EMAR. PT IS ON HEPARIN 18U/KG/HR. CLINICALLY PT DID NOT LOOK WELL, PT DID NOT HAVE ANY COMPLAINTS BUT WAS VERY DIAPHORETIC WITHOUT FEVER, AND THIS RN NOTICIED SOME EKG CHANGES ON THE MONITOR, PROVIDER JOSE JEFFREY WAS NOTIFIED, EKG WAS DONE WITH NO CHANGES FROM EKG IN ER, PROVIDER SAID TO MONITOR THROUHGOUT THE NIGHT AND WILL LOOK AT CHART TO MAKE SURE NOTHING NEEDS TO BE CHANGED. NO OTHER INTERVENTIONS AT THIS TIME. PLAN OF CARE CONTINUED.
[2024-08-09] MEDS ORDERED: Dose Adjust by Pharmacy XX STA ×2 (01:50→23:48)
[2024-08-09 04:16] LABS: Base Excess Venous -11.4 mmol/L; Bicarbonate Venous 15.2 mmol/L (24.0-30.0); PCO2 Venous 47.4 mmHg (38-42); pH Blood Venous 7.17 (7.34-7.37)
[2024-08-09 04:21] LABS: BASOPHILS ABSOLUTE AUTO 0.02 K/mm3 (0.00-0.23); BASOPHILS PERCENT AUTO 0 % (0-2); EOSINOPHILS PERCENT AUTO 0 % (0-6); Hematocrit 45.1 % (37.0-53.0); Hemoglobin 15.4 g/dL (13.5-17.5); IMMATURE GRAN ABSOLUTE AUTO 0.04 K/mm3 (0.00-0.10); IMMATURE GRAN PERCENT AUTO 1 % (0-1); LYMPHOCYTES ABSOLUTE AUTO 0.47 K/mm3 (0.84-5.20); LYMPHOCYTES PERCENT AUTO 7 % (21-46); MONOCYTES ABSOLUTE AUTO 0.14 K/mm3 (0.16-1.47); MONOCYTES PERCENT AUTO 2 % (4-13); Mean Corpuscular HGB 32.3 pg (26.0-34.0); Mean Corpuscular HGB Conc 34.1 g/dL (31.5-36.5); Mean Corpuscular Volume 95 fL (80-100); Mean Platelet Volume 11.7 fL (9.1-12.4); NEUTROPHILS ABSOLUTE AUTO 6.09 K/mm3 (1.96-9.15); NEUTROPHILS PERCENT AUTO 90 % (41-73); Platelet Count 112 K/mm3 (150-400); RDW Coefficient Variation 14.7 % (11.7-14.2); RDW Standard Deviation 51.3 fL (35.1-46.3); Red Blood Cell Count 4.77 M/mm3 (4.30-5.90); White Blood Cell Count 6.76 K/mm3 (4.00-11.30)
[2024-08-09 04:58] LABS: Albumin, Blood 2.6 g/dL (3.4-5.0); Albumin/Globulin Ratio 0.6 (0.8-1.8); Bilirubin, Total 0.4 mg/dL (0.1-1.0); Bun/Creatinine Ratio 11.2 (12.0-20.0); Calcium, Blood 8.1 mg/dL (8.5-10.1); Creatinine, Blood 4.19 mg/dL (0.60-1.20); Globulin, Blood 4.5 g/dL (2.2-4.0); Potassium, Blood 4.3 mmol/L (3.5-5.5); Total Protein, Blood 7.1 g/dL (6.4-8.2)
[2024-08-09] MEDS ORDERED: Sodium Bicarb 8.4% Inj 100 MEQ in Sodium Chloride 0.45% 1,000 ML IV SCH (05:00)
--- NOTE | 2024-08-09 05:38 | NUR ---
PT SUMMARY PT GOT SOME SLEEP THROUGHOUT THE NIGHT, IS LOOKING A LITTLE BETTER HE CONTINUES TO GET MORE REST, STILL NOT COMPLAINING OF SHORTNESS OF BREATH. pH ON VBG CAME BACK CRITICAL, WAS NOTIFIED, NEW ORDERS PLACED, PT NOW ON BI-CARB DRIP. NO OTHER ACUTE EVENTS TO REPORT OVERNIGHT. PLAN OF CARE CONTINUED.
[2024-08-09] MEDS ORDERED: Rivaroxaban 10 MG Tab PO SCH (09:00)
[2024-08-09] MEDS ORDERED: Lactobacil 2-S.Thermo-Bifido 1 1 Cap PO SCH (09:00)
[2024-08-09 15:48] LABS: Base Excess Venous -9.5 mmol/L; Bicarbonate Venous 17.4 mmol/L (24.0-30.0)
[2024-08-09 15:49] LABS: pH Blood Venous 7.26 (7.34-7.37)
[2024-08-09] MEDS ORDERED: Insulin Human Lispro 100 Units/ML 3ML Syringe SC SCH (16:30)
[2024-08-09] MEDS ORDERED: D5W-LR 1,000 ML IV SCH (17:50)
[2024-08-09] MEDS ORDERED: Lactated Ringer's 1,000 ML IV SCH (18:35)
--- NOTE | 2024-08-09 18:35 | NUR ---
SHIFT SUMMARY: NEURO: PATIENT ALERT AND ORIENTED THROUGHOUT THE SHIFT. PATIENT ABLE TO MAKE HIS NEEDS KNOWN. PATIENT HAS A VERY STRONG PHYSICAL AND VISERAL RESPONSE TO NEEDLES. PATIENT REPORTED FATIGUE TODAY. RESPIRATORY: PATIENT TOLERATING CPAP DURING THE SHIFT. ABLE TO TOLERATE AIRVO FOR BREAKS FROM THE CPAP. PATIENT WHEEZY IN THE UPPER AIRWAYS AND COARSE IN THE BASES. RR IN THE 20S. VOLUMES 600-1200. PATIENT REPORTS IMPROVEMENT TO HIS RESPIRATORY STATUS. SPO2 >90%. PATIENT TACHYPNEIC WITH ACTIVITY. CARDIAC: HR IN THE 70S-90S. PATIENT DENIES CHEST PAIN OR DISCOMFORT. VITALS STABLE WITH SBP >100 AND MAPS >65. GI/: PATIENT HAD A MIN-MOD APPETITE TODAY. URINE IS DARK YELLOW AND CLOUDY. LIQUID DARK BROWN BOWEL MOVEMENT TODAY. PATIENT DENIES NAUSEA. PSYCHSOCIAL: PATIENT COOPERATIVE WITH CARE, EVEN WHEN IT CAUSES HIM ANXIETY.
[2024-08-09] MEDS ORDERED: Oseltamvir Phosphate 30 MG Cap PO SCH (21:00)
--- NOTE | 2024-08-10 00:57 | NUR ---
CHARGING PLUG PLACER REPORTED RHYTHM CHANGES ON TELEMETRY. EKG OBTAINED AND DR DUENAS NOTIFIED. PATIENT DENIES CHEST PAIN. TROPS ORDERED.
[2024-08-10 01:24] LABS: Base Excess Venous -7.9 mmol/L; PCO2 Venous 40.6 mmHg (38-42); pH Blood Venous 7.28 (7.34-7.37)
[2024-08-10 01:24] LABS: BASOPHILS ABSOLUTE AUTO 0.01 K/mm3 (0.00-0.23); BASOPHILS PERCENT AUTO 0 % (0-2); EOSINOPHILS PERCENT AUTO 0 % (0-6); Hematocrit 42.1 % (37.0-53.0); Hemoglobin 14.8 g/dL (13.5-17.5); IMMATURE GRAN ABSOLUTE AUTO 0.04 K/mm3 (0.00-0.10); IMMATURE GRAN PERCENT AUTO 1 % (0-1); LYMPHOCYTES ABSOLUTE AUTO 0.44 K/mm3 (0.84-5.20); LYMPHOCYTES PERCENT AUTO 5 % (21-46); MONOCYTES ABSOLUTE AUTO 0.44 K/mm3 (0.16-1.47); MONOCYTES PERCENT AUTO 5 % (4-13); Mean Corpuscular HGB 32.5 pg (26.0-34.0); Mean Corpuscular HGB Conc 35.2 g/dL (31.5-36.5); Mean Corpuscular Volume 92 fL (80-100); Mean Platelet Volume 12.2 fL (9.1-12.4); NEUTROPHILS ABSOLUTE AUTO 7.15 K/mm3 (1.96-9.15); NEUTROPHILS PERCENT AUTO 89 % (41-73); Platelet Count 127 K/mm3 (150-400); RDW Coefficient Variation 14.9 % (11.7-14.2); RDW Standard Deviation 50.3 fL (35.1-46.3); Red Blood Cell Count 4.56 M/mm3 (4.30-5.90); White Blood Cell Count 8.08 K/mm3 (4.00-11.30)
[2024-08-10 01:41] LABS: Magnesium, Blood 2.4 mg/dL (1.6-2.4)
[2024-08-10 01:49] LABS: Albumin, Blood 2.6 g/dL (3.4-5.0); Anion Gap 18 mmol/L (3-11); Blood Urea Nitrogen 59 mg/dL (8-24); Bun/Creatinine Ratio 16.7 (12.0-20.0); CO2, Blood 18 mmol/L (21-32); Calcium, Blood 8.4 mg/dL (8.5-10.1); Chloride, Blood 105 mmol/L (98-108); Creatinine, Blood 3.54 mg/dL (0.60-1.20); Glomerular Filtration Rate 18 (60-); Glucose, Blood 228 mg/dL (70-99); Phosphorus, Blood 5.4 mg/dL (2.5-4.9); Potassium, Blood 3.2 mmol/L (3.5-5.5); Sodium, Blood 138 mmol/L (136-145)
[2024-08-10 02:17] LABS: Uric Acid, Blood 10.6 mg/dL (3.5-7.2)
[2024-08-10 03:25] VITALS: BP 120/91
[2024-08-10] MEDS ORDERED: Sodium Bicarb 8.4% Inj 100 MEQ in Sodium Chloride 0.45% 1,000 ML IV SCH (03:30)
--- NOTE | 2024-08-10 06:03 | NUR ---
SHIFT SUMMARY PATIENT ALERT AND ORIENTED X4. HAD NO COMPLAINTS OF PAIN. PATIENT TACHYPNIC AND BECOMES SHORT OF BREATH UPON EXERTION. ON AIRVO 50L 40% FIO2 WHILE AWAKE, WORE CPAP FOR SLEEP. BLOOD PRESSURE STABLE. LR DISCONTINUED AND PATIENT STARTED ON 1/2 NS WITH SODIUM BICARB PER EMAR AFTER MORNING LABS RESULTED. WILL CONTINUE TO MONITOR. CALL LIGHT WITHIN REACH.
[2024-08-10] MEDS ORDERED: Dose Adjust by Pharmacy XX STA ×2 (06:51→13:35)
[2024-08-10] MEDS ORDERED: Heparin Sodium 5000 Units/ML 1ML MDV IV ONE ×2 (06:55→13:40)
[2024-08-10 08:08] VITALS: BP 128/78
--- NOTE | 2024-08-10 12:00 | NUR ---
THIS RN ASSUMED CARE OF THE PT AT ABOUT 0930; REPORT RECIEVED FROM CALLIE PAYNE. DURING BEDSIDE SHIFT REPORT THE PT WAS LAYING IN BED ON THE AIRVO 50L @ 40%. SP02 >93%. REPORTED THAT HE DOES DESATURATE WHEN TALKING OR WITH ACTIVITY. THE PT DENIES ANY SOB WHILE RESTING. ON TELE THE PT IS SR W/ BBB PVC'S TRIGEM 70'S. BP STABLE. HE HAS A HEPARIN GTT INFUSING PER EMAR, VERFIED WHILE IN THE ROOM W/ CALLIE PAYNE. PT IS RECIEVING SODIUM BICARB PER EMAR. AT ABOUT 1200 THE PT WAS TITRAITED DOWN ON THE AIRVO BY RT. AIRVO 45L @40%. SP02 >93%. PT CONTINUES TO DENY SOB. SEE NOTES FOR UPDATES.
[2024-08-10 12:25] VITALS: BP 147/72
[2024-08-10 15:21] VITALS: BP 131/91
--- NOTE | 2024-08-10 17:40 | NUR ---
SHIFT SUMMARY THE PT IS A&OX4, CALLS APPROPRAITELY, AND MAKES HIS NEEDS KNOWN. 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 THE PT HAS BEEN TITRAITED TO 4L NC THIS SHIFT FROM THE AIRVO 50L @ 45%. THE PT DENIES ANY SOB WITH REST BUT DOES HAVE SOME W/ EXCERTION.ON TELE HE HAS BEEN SR W/ BBB AND PVC'S 70'S. THE PT HAS BEEN HAVING FREQUENT BUNDLE FLIPS SINCE BEING AT THE HOSPITAL. ONE SMALL BEAT RUN OF VTACH NOTED. PT ASYMPTOMATIC. HE REMAINS ON A HEPARIN GTT PER EMAR. NO ACUTE EVENTS. SEE NOTES FOR UPDATES .
[2024-08-10 19:57] VITALS: BP 130/74
[2024-08-11] VITALS (7 sets, daily range): BP systolic 128–162; BP diastolic 74–83
[2024-08-11 03:33] LABS: Albumin, Blood 2.8 g/dL (3.4-5.0); Anion Gap 13 mmol/L (3-11); Blood Urea Nitrogen 69 mg/dL (8-24); Bun/Creatinine Ratio 29.4 (12.0-20.0); CO2, Blood 22 mmol/L (21-32); Calcium, Blood 8.6 mg/dL (8.5-10.1); Chloride, Blood 108 mmol/L (98-108); Creatinine, Blood 2.35 mg/dL (0.60-1.20); Glomerular Filtration Rate 30 (60-); Glucose, Blood 173 mg/dL (70-99); Phosphorus, Blood 3.9 mg/dL (2.5-4.9); Potassium, Blood 3.7 mmol/L (3.5-5.5); Sodium, Blood 139 mmol/L (136-145)
[2024-08-11] MEDS ORDERED: Dose Adjust by Pharmacy XX STA (03:49)
--- NOTE | 2024-08-11 04:51 | NUR ---
SHIFT SUMMARY. SHIFT HAS BEEN UNREMARKABLE. PT AOX4, PLEASANT, COOPERATIVE, ABLE TO MAKE NEEDS KNOWN. HAS BEEN ABLE TO REST COMFORTABLY THROUGHOUT MOST OF SHIFT. HAS DENIED PAIN THROUGHOUT SHIFT. VITALS HAVE REMAINED STABLE. CONTINUES TO RUN SINUS ON TELE. 1PA TRANSFER TO [facility]. O2 DEMANDS STABLE THROUGHOUT SHIFT. BED LOCKED IN LOWEST POSITION. CALL LIGHT LEFT WITHIN REACH. CONTINUING TO MONITOR.
[2024-08-11] MEDS ORDERED: Metoprolol Succinate 25 MG TABCR PO SCH (09:00)
[2024-08-11] MEDS ORDERED: Pantoprazole Sodium 20 MG Tab PO SCH (09:00)
[2024-08-11] MEDS ORDERED: Rivaroxaban 10 MG Tab PO SCH (09:00)
[2024-08-11] MEDS ORDERED: MethylPREDNISolone Sod Succ 40 MG VIAL IV SCH (09:00)
--- NOTE | 2024-08-11 16:03 | NUR ---
PT WILL BE TRANSFERING TO ROOM 329 THE PT IS A&OX4, CALLS APPROPRAITELY, AND MAKES NEEDS KNOWN. THE PT IS A 1P SBA FOR TX, HE IS DECONDITIONED. PHYSICAL THERAPY ORDERED PLACED TODAY. THE PT HAS BEEN ON 4L NC AND HAS BEEN TITRAITED TO 2L NC THIS AFTERNOON. HE DENIES SOB WHILE RESTING, BUT HE DOES GET WHEEZY AND SOB WITH ACTIVITY. ON TELE THE PT IS SR W/ BBB, PVC'S, AND HAD ONGOING FLIPPING BUNDLES. BP STABLE. HE DENIES ANY ANGINA OR CHEST PRESSURE. THE PT'S HEPARIN GTT WAS D/C'D THIS MORNING AND HE WAS STARTED ON XERELTO. IV STERIODS HAVE BEEN DECREASED THIS SHIFT. PT STARTED ON PPI PER DR. REINA. NO ACUTE EVENTS. PT'S SIGNIFICANT OTHER HAS BEEN AT BEDSIDE AND UPDATED ON CARE. SEE NOTES FOR ANY UPDATES.
--- NOTE | 2024-08-11 18:00 | NUR ---
TRANSFER PATIENT TRANSFERED UP FROM PCU. PATIENT SOB WITH MINIMAL EXCERTION AND COUGHING. PATIENT ABLE TO TRANSFER FROM WHEELCHAIR TO BED. PATIENT ALERT AND INTERACTIVE. PATIENT DENYING ANY NEEDS AT THIS TIME. PATIENT ENCOURAGED TO USE CALL LIGHT FOR NEEDS. PATIENT IN ISOLATION FOR FLU.
[2024-08-12 02:26] VITALS: BP 144/77
--- NOTE | 2024-08-12 06:00 | NUR ---
Pt A&O x4, VS WNL, tele d/c early in shift, was SB 50's. BG 160 at HS recieved no coverage. Pt up on EOB independently, did not sleep well in night, takes O2 off when goes to BR, and education has not helped as I have enforced that the tubing is long enough for him to use the O2 why he uses BR. Pt on O2 2L and continuous sat monitor sats in low to mid 90's. Awaiting PT eval.
[2024-08-12 07:46] VITALS: BP 147/68
[2024-08-12] MEDS ORDERED: PredniSONE 20 MG Tab PO SCH (09:00)
[2024-08-12 09:18] LABS: Albumin, Blood 2.7 g/dL (3.4-5.0); Anion Gap 13 mmol/L (3-11); Blood Urea Nitrogen 59 mg/dL (8-24); Bun/Creatinine Ratio 38.8 (12.0-20.0); CO2, Blood 21 mmol/L (21-32); Calcium, Blood 8.9 mg/dL (8.5-10.1); Chloride, Blood 114 mmol/L (98-108); Creatinine, Blood 1.52 mg/dL (0.60-1.20); Glomerular Filtration Rate 50 (60-); Glucose, Blood 156 mg/dL (70-99); Phosphorus, Blood 3.4 mg/dL (2.5-4.9); Potassium, Blood 4.3 mmol/L (3.5-5.5); Sodium, Blood 144 mmol/L (136-145)
[2024-08-12] MEDS ORDERED: NS 250 ML IV PRN (09:20)
[2024-08-12 15:59] VITALS: BP 130/81
--- NOTE | 2024-08-12 18:28 | NUR ---
SHIFT SUMMARY PT A&OX4. PT ADMITTED DUE TO ACUTE RENAL INCUFFICIENCY. PT REPORTS NO PAIN. PT IS TACHYPNIC WHEN AMBULATING. PT TELE D/C. PT HAS CONT. PULSE OX ON, SPO2 IS 96&. PT IS ON 2L WITH HIGH FLOW CANNULA. PT SITTING IN CHAIR. PT HAD VISITORS. PT CALLS APPROPRIATE. CALL LIGHT IN REACH. VSS. PT ACHS. PT ON XARELTRO. NO ACUTE CHANGES DURING SHIFT.
[2024-08-12 19:31] VITALS: BP 147/69
[2024-08-13 02:59] VITALS: BP 113/58
--- NOTE | 2024-08-13 04:55 | NUR ---
Pt A&O x4, VS WNL, continues to have dyspnea, on O2 2L with sats in the low 90's. Output WNL, BG 123 at HS. BM x2 this shift. Pt up independently tonight with steady gait. Pt not eating meals, but snakes in between. L/S with expritory wheezing t/o. Pt desats <90% on RA. Continues on neb tx's, and tamiflu.
[2024-08-13 08:03] VITALS: BP 121/85
[2024-08-13 08:45] LABS: Albumin, Blood 2.5 g/dL (3.4-5.0); Anion Gap 6 mmol/L (3-11); Blood Urea Nitrogen 47 mg/dL (8-24); Bun/Creatinine Ratio 38.8 (12.0-20.0); CO2, Blood 27 mmol/L (21-32); Calcium, Blood 8.3 mg/dL (8.5-10.1); Chloride, Blood 117 mmol/L (98-108); Creatinine, Blood 1.21 mg/dL (0.60-1.20); Glomerular Filtration Rate 66 (60-); Glucose, Blood 95 mg/dL (70-99); Phosphorus, Blood 3.2 mg/dL (2.5-4.9); Potassium, Blood 4.2 mmol/L (3.5-5.5); Sodium, Blood 146 mmol/L (136-145)
--- NOTE | 2024-08-13 09:26 | NUR ---
NOTE NIGHT NURSE REPORTED TRIED TO TITRATE PT TO BASELINE, ROOM AIR. PER NIGHT NURSE, PT SPO2 DROPPED TO MID 80%'S. REPORTED TO DR. Trinidad DURING PHYSICIAN ROUNDS. DR. TRINIDAD REPORTED WILL ORDER HOME O2 EVAL. PT CURRENTLY ON 2L OF HIGH FLOW O2 VIA N/C.
[2024-08-13] MEDS ORDERED: ALBU90OI INH (13:32)
[2024-08-13] MEDS ORDERED: LOSA25 PO (13:32)
[2024-08-13] MEDS ORDERED: PANT20 PO (13:33)
[2024-08-13] MEDS ORDERED: PRED20 PO (13:34)
[2024-08-13] MEDS ORDERED: SPIRIVA RESPIMAT4 G3 INH (13:36)
--- NOTE | 2024-08-13 14:55 | NUR ---
NOTE PT A&OX4. PT DISCHARGED AT 1440. PT ADMITTED DUE TO ACUTE RENAL INSUFFICIENCY. PT REPORTS NO PAIN RESPIRATORY CAME FOR NEB TREATMENT THIS AM. PT TOOK OFF O2 AND WAS SATTING AT 94% WITH REST. PT INDEPENDENT IN ROOM, PT EATS ADEQUATE. VSS. DR. REINA ORDERED HOME O2 EVAL. RESPIRATORY THERAPY DID NOT RECOMEND PT TO GO HOME WITH O2. PT SPO2 WHEN AMBULATING WENT TO 89%. PT REPORTS SOME SOB, BUT STATED "WILL TAKE THINGS SLOW". PT REPORTED WILL FOLLOW UP WITH PCP. PT DENIED PICKING UP MEDS AT PHARMACY OTHER THAN [facility] KNOWING THAT HE WOULDNT BE ABLE TO TANK CLEANER MEDS TILL TOMORROW. CALLED DR. REINA AND REPORTED, DR. REINA SAID THAT WAS OK, THAT HIS CRITICAL MEDS WOULD BE RESUMED TOMORROW ANYWAYS BECAUSE THEY ARE ORDERED DAILY. EDUCATED PT ON DISCHARGE INSTRUCTIONS AND MEDS. PT LEFT WITH ALL PERSONAL BELONGINGS. ESCORTED BY DIRECTOR STATISTICAL PROGRAMMING VIA WHEELCHAIR TO PERSONAL VEHICLE.
== END 2024-08-13 14:35 | disposition home or self-care (01) | DRG 682 ==
LOC: ER 20:17 → PCU 23:08 → ERHOLD 23:08 → PCU 08-08 14:30 → MEDS 08-11 16:40
PROVIDERS: Hospitalist; Internal Medicine; Physician Assistant; ADMIT Student in an Organized Health Care Education/Training Program
PROC: 5A09457 Assistance with Respiratory Ventilation, 24-96 Consecutive Hours, Continuous Positive Airway Pressure (ICD-10-PCS; principal; 2024-08-09)
DX: N17.9 Acute kidney failure, unspecified (principal); I21.A1 Myocardial infarction type 2; J96.01 Acute respiratory failure with hypoxia; J96.02 Acute respiratory failure with hypercapnia; E87.4 Mixed disorder of acid-base balance; I50.42 Chronic combined systolic (congestive) and diastolic (congestive) heart failure; I13.0 Hypertensive heart and chronic kidney disease with heart failure and stage 1 through stage 4 chronic kidney disease, or unspecified chronic kidney disease; E66.2 Morbid (severe) obesity with alveolar hypoventilation; J10.1 Influenza due to other identified influenza virus with other respiratory manifestations; J44.9 Chronic obstructive pulmonary disease, unspecified; N18.30 Chronic kidney disease, stage 3 unspecified; M06.9 Rheumatoid arthritis, unspecified; D50.9 Iron deficiency anemia, unspecified; D63.1 Anemia in chronic kidney disease; Z86.711 Personal history of pulmonary embolism; Z86.718 Personal history of other venous thrombosis and embolism; Z79.84 Long term (current) use of oral hypoglycemic drugs; Z79.899 Other long term (current) drug therapy; Z79.01 Long term (current) use of anticoagulants; Z98.890 Other specified postprocedural states; Z87.891 Personal history of nicotine dependence
CPT/HCPCS: 36415; 71046; 76770; 80053; 80069; 82570; 82728; 82803; 82947; 83540; 83550; 83605; 83735; 83880; 84300; 84484; 84550; 85025; 85520; 85610; 85730; 87040; 87428-QW; 93005; 93010; 94640; 94660; 94664; 94760; 94761; 94762; 97110; 97161; 97530; 99285-25; A9270; J0696; J1644; J1750; J2470; J2919; J7030; J7050; J7120; J7512